=== PATIENT | male | born 1990 | race Caucasian/White ===

== ENCOUNTER 2020-05-18 16:35 | Emergency (ER) | payer MEDICAID ==
[~2020-05-18] VITALS: Ht 170.2 cm; Wt 69.0 kg
[2020-05-18] MEDS ORDERED: VISCOUS LIDOCAINE 2% 15 ML UDC PO STA (16:57)
[2020-05-18] MEDS ORDERED: MAGNESIUM/ALUMINUM HYDROXIDE/SIMETHICONE 30ML UDC PO STA (16:57)
[2020-05-18] MEDS ORDERED: DICYCLOMINE 10 MG/5 ML ORAL SYR PO STA (16:57)
[2020-05-18 17:49] VITALS: BP 114/66
== END 2020-05-18 18:25 | disposition home or self-care (01) ==
LOC: ER 16:43
DX: T54.91XA Toxic effect of unspecified corrosive substance, accidental (unintentional), initial encounter (principal); Y92.9 Unspecified place or not applicable
CPT/HCPCS: 71045; 99284